=== PATIENT | female | born 1990 | race American Indian/Alaskan Native ===

== ENCOUNTER 2018-01-19 20:14 | Outpatient (CLI) | payer OTHER | END 2018-01-20 19:32 | disposition home or self-care (01) | LOC: OBS/DEL 20:14 | DX: O47.02 False labor before 37 completed weeks of gestation, second trimester (principal); N20.0 Calculus of kidney ==

== ENCOUNTER → 2018-01-19 | Emergency (ER) | payer OTHER | END | disposition left against medical advice (07) | LOC: ER 18:21 | DX: Z53.20 Procedure and treatment not carried out because of patient's decision for unspecified reasons (principal) ==

== ENCOUNTER 2018-01-21 14:47 | Inpatient (IN) | payer OTHER ==
[~2018-01-21] VITALS: Ht 157.5 cm; Wt 54.4 kg
[2018-01-22] MEDS ORDERED: PRENATAL TABLE1 EAC1 PO (16:08)
[2018-01-22] MEDS ORDERED: KEFLEX500 MG PO (16:13)
== END 2018-01-25 14:36 | disposition home or self-care (01) | DRG 781 ==
LOC: OBS/DEL 14:47 → LDR 01-22 10:43
PROC: 4A1HXCZ Monitoring of Products of Conception, Cardiac Rate, External Approach (ICD-10-PCS; principal; 2018-01-22)
DX: O26.892 Other specified pregnancy related conditions, second trimester (principal); N23 Unspecified renal colic

== ENCOUNTER 2018-05-31 23:50 | Inpatient (IN) | payer OTHER ==
[~2018-05-31] VITALS: Ht 157.5 cm; Wt 68.0 kg
[~2018-05-31 23:50] MED LIST: KEFLEX500 MG PO; PRENATAL TABLE1 EAC1 PO
== END 2018-06-03 15:43 | DRG 775 ==
LOC: OBS/DEL 23:50 → LDR 06-01 08:47 → OB/GYN 06-01 08:47
PROC: 10E0XZZ Delivery of Products of Conception, External Approach (ICD-10-PCS; principal; 2018-06-01)
PROC: 4A1HXCZ Monitoring of Products of Conception, Cardiac Rate, External Approach (ICD-10-PCS; 2018-06-01)
PROC: BY4FZZZ Ultrasonography of Third Trimester, Single Fetus (ICD-10-PCS; 2018-06-01)
DX: O80 Encounter for full-term uncomplicated delivery (principal); Z37.0 Single live birth; Z3A.39 39 weeks gestation of pregnancy